=== PATIENT | male | born 1965 | race American Indian/Alaskan Native ===

== ENCOUNTER 2016-10-06 23:27 | Observation (INO) | payer OTHER ==
[2016-10-06 23:40] VITALS: BMI 25.0
[2016-10-06] MEDS ORDERED: Levalbuterol 1.25 MG/3 ML Inhal Soln UD IH STA (23:44)
--- NOTE | 2016-10-06 23:48 | ED PDOC ---
Arrival/HPI - General Time Seen by Provider: 10/06/16 23:31 Historian: Patient, EMS - History of Present Illness Narrative History of Present Illness (Text): 10/06/16 23:44 Danie De Leon is a 50 year old male, with a history of CAD with stents and asthma/bronchitis, presents to the via ambulance because he was found unconscious in a backyard barbecue. Patient was administered 0.4 mg of narcan in the field, after which he regained consciousness. Patient admits to drinking alcohol and "sniffing a bag of heroin" but was unsure what happened after. Currently in the emergency department, patient is complaining of a chest pain, which he describes as "someone pressing on the chest." Denies any suicidal or homicidal ideation. Denies fever, chills, headache, dizziness, nausea, vomiting , diarrhea, urinary symptoms, or any other complaints at this time. Time/Duration: 1-3 hours Symptom Course: Improving Context: Home Past Medical History - Provider Review Nursing Documentation Reviewed: Yes Family/Social History - Physician Review Nursing Documentation Reviewed: Yes Family/Social History: No Known Family HX Allergies/Home Meds Allergies/Adverse Reactions: Allergies Penicillins Adverse Reaction (Verified 10/06/16 23:41) ANAPHYLAXIS Home Medications: Home Meds Medication Instructions Recorded Confirmed No Known Home Med 10/06/16 10/06/16 Review of Systems - Physician Review All systems were reviewed & negative as marked: Yes - Review of Systems Constitutional: absent: Fatigue, Fevers Respiratory: absent: SOB, Cough, Sputum Cardiovascular: Chest Pain. absent: Palpitations Gastrointestinal: absent: Abdominal Pain, Diarrhea, Nausea, Vomiting Neurological: absent: Headache, Dizziness Psychiatric: Other (Heroin use ). absent: Suicidal Ideation Physical Exam Vital Signs Reviewed: Yes Vital Signs Pulse Resp BP Pulse Ox 10/07/16 01:14 80 16 138/85 94 L 10/06/16 23:41 94 H 17 151/105 H 93 L Temperature: Afebrile Blood Pressure: Normal Pulse: Regular Respiratory Rate: Normal Appearance: Positive for: Comfortable Pain Distress: None Mental Status: Positive for: Alert and Oriented X 3 - Systems Exam Head: Present: Atraumatic, Normocephalic Pupils: Present: PERRL Conjunctiva: Present: Normal Mouth: Present: Moist Mucous Membranes Pharnyx: Present: Normal. No: ERYTHEMA, EXUDATE Neck: No: JVD Respiratory/Chest: Present: Wheezes, Decreased Breath Sounds (Diminished breath sounds with mild wheezing ). No: Respiratory Distress, Accessory Muscle Use Cardiovascular: Present: Regular Rate and Rhythm, Normal S1, S2. No: Murmurs Abdomen: Present: Normal Bowel Sounds. No: Tenderness, Distention, Peritoneal Signs Upper Extremity: Present: Normal Inspection. No: Cyanosis, Edema Lower Extremity: Present: Normal Inspection. No: Edema Neurological: Present: GCS=15, CN II-XII Intact, Speech Normal Skin: Present: Warm, Dry, Normal Color. No: Rashes Psychiatric: Present: Alert, Oriented x 3, Normal Insight, Normal Concentration Medical Decision Making ED Course and Treatment: 10/06/16 23:51 Impression: Patient is a 50 year old male who presents to the emergency department complaining of chest pain following heroin and alcohol use. Plan: -- EKG -- Labs, Cardiac enzymes -- Chest X-ray -- Aspirin -- Xopenex -- Urinalysis -- Reassess and disposition Progress Notes: 10/06/16 23:54 EKG interpreted by me: NSR @ 97 bpm with .[address] segment elevation in Leads III and aVF. Q waves noted in V2 and V3. Mild MN depressions. Normal axis. Normal interval. No prior EKG for comparison. EKG sent to Dr. Casillas for review, agrees that it is not a STEMI. 10/06/16 23:58 Chest X-ray interpreted by me: No acute disease. 10/07/16 01:38 Patient with noted history of heroine OD, revived after narcan. Patient is stable from a respiratory status here in the ED. Denies SI. However, he is c/ o chest pain with a history of CAD. EKG is noted. First CE negative. Patient will need serial CE and cardiology workup. Case discussed with who is aware and agrees with the plan to observe patient at telemetry for chest pain. Accepts patient under hospitalist service. - Lab Interpretations Lab Results: 10/07/16 00:20 10/07/16 00:20 Lab Results 10/07/16 00:20: Alcohol, Quantitative 156 H 10/07/16 00:20: Sodium 143, Potassium 3.6, Chloride 106, Carbon Dioxide 24, Anion Gap 17, BUN 16, Creatinine 1.0, Est GFR ( Amer) > 60, Est GFR (Non- Af Amer) > 60, Random Glucose 98, Calcium 8.8, Magnesium 1.8, Total Bilirubin 0.8, AST 28, ALT 24, Alkaline Phosphatase 69, Lactate Dehydrogenase 426, Total Creatine Kinase 184, Troponin I < 0.01, NT-Pro-B Natriuret Pep 115, Total Protein 8.1, Albumin 4.6, Globulin 3.5, Albumin/Globulin Ratio 1.3, Lipase 354 H 10/07/16 00:20: PT 10.5, INR 0.97, APTT 24.7 10/07/16 00:20: WBC 5.7, RBC 5.21, Hgb 16.1, Hct 47.6, MCV 91.4, MCH 30.9, MCHC 33.8, RDW 14.5, Plt Count 202, MPV 9.8, Gran % 52.2, Lymph % (Auto) 36.7 H, [place] % (Auto) 6.7 H, Eos % (Auto) 3.3, Baso % (Auto) 1.1, Gran # 2.97, Lymph # 2.1, [place] # 0.4, Eos # 0.2, Baso # 0.06 - RAD Interpretation Radiology Orders: 10/06/16 23:43 CHEST PORTABLE [RAD] Stat - Medication Orders Current Medication Orders: Discontinued Medications Aspirin (Aspirin Chewable) 324 mg PO STAT STA Stop: 10/06/16 23:45 Last Admin: 10/07/16 00:07 Dose: 324 mg Levalbuterol HCl (Xopenex) 1.25 mg IH STAT STA Stop: 10/06/16 23:45 Last Admin: 10/07/16 00:08 Dose: 1.25 mg - Scribe Statement The provider has reviewed the documentation as recorded by the Feng Remy Provider Attestation: All medical record entries made by the Feng were at my direction and personally dictated by me. I have reviewed the chart and agree that the record accurately reflects my personal performance of the history, physical exam, medical decision making, and the department course for this patient. I have also personally directed, reviewed, and agree with the discharge instructions and disposition. Disposition/Present on Arrival - Present on Arrival Any Indicators Present on Arrival: No - Disposition Have Diagnosis and Disposition been Completed?: Yes Diagnosis: Heroin overdose, Chest pain Disposition: HOSPITALIZED Disposition Time: 01:20 Patient Plan: Observation, Telemetry Condition: FAIR Discharge Instructions (ExitCare): Chest Pain (ED)
[2016-10-07 00:34] LABS: BASO # 0.06 K/mm3 (0.0-2.0); BASO % 1.1 % (0.0-3.0); EOS # 0.2 (0.0-0.7); EOS % 3.3 % (1.5-5.0); GRAN # 2.97 (1.4-6.5); GRAN % 52.2 % (50.0-68.0); HEMOGLOBIN 16.1 gm/dL (14.0-18.0); LYMPH # 2.1 (1.2-3.4); LYMPH % 36.7 % (22.0-35.0); MEAN CELL VOLUME 91.4 fL (80.0-105.0); MEAN CORPUSCULAR HEMOGLOBIN 30.9 pg (25.0-35.0); MEAN CORPUSCULAR HGB CONC 33.8 g/dl (31.0-37.0); MEAN PLATELET VOLUME 9.8 fl (7.0-11.0); MONO # 0.4 (0.1-0.6); MONO % 6.7 % (1.0-6.0); PLATELET COUNT 202 10^3/uL (120.0-450.0); RBC 5.21 10^6/uL (3.5-6.1); RED CELL DISTRIBUTION WIDTH 14.5 % (11.5-14.5); WHITE BLOOD COUNT 5.7 10^3/ul (4.5-11.0)
[2016-10-07 00:43] LABS: INR 0.97 (0.93-1.08); PARTIAL THROMBOPLASTIN TIME 24.7 Seconds (23.7-30.8); PROTHROMBIN TIME 10.5 Seconds (9.9-11.8)
[2016-10-07 00:44] LABS: ALB/GLOB RATIO 1.3 (1.1-1.8); ALBUMIN 4.6 g/dL (3.0-4.8); ALT/SGPT 24 U/L (7-56); AST/SGOT 28 U/L (15-59); BLOOD UREA NITROGEN 16 mg/dL (7-21); CALCIUM 8.8 mg/dL (8.4-10.5); GFR AFRICAN-AMERICAN > 60; GFR NON-AFRICAN AMERICAN > 60; LIPASE 354 U/L (23-300); MAGNESIUM 1.8 mg/dL (1.7-2.2)
[2016-10-07 00:56] LABS: B-TYPE NATRIURETIC PEPTIDE 115 pg/mL (0-450)
[2016-10-07 01:11] LABS: TROPONIN I < 0.01 ng/mL
[2016-10-07] MEDS ORDERED: Sodium Chloride 0.9% 1,000 ML IV SCH (02:15)
[2016-10-07] MEDS ORDERED: Levalbuterol 1.25 MG/3 ML Inhal Soln UD IH PRN (02:26)
[2016-10-07] MEDS ORDERED: Ipratropium 0.02% Inhal Soln (0.5 mg/2.5 ml) UD IH PRN (02:27)
--- NOTE | 2016-10-07 02:29 | CP.PCM.HP ---
<ALAYNA WESLEY - Last Filed: 10/07/16 05:26> History of Present Illness - History of Present Illness History of Present Illness: Patient is a 51 year old black male with a PMH of CAD with stents and asthma who presents today with complaint of chest pain after admitting to taking heroin and consuming alcohol. Patient states the pain was initially a 7/10 now and since being admitted has improved to a 6/10. Patient states that this chest pain has only occurred once before when he took heroin and this was about a year ago as per patient. Patient denies nausea, vomiting, diarrhea, chills, shortness of breath. Present on Admission - Present on Admission Any Indicators Present on Admission: No Review of Systems - Review of Systems Systems not reviewed;Unavailable: Altered Mental Status, Intoxicated, Uncooperative - Cardiovascular Cardiovascular: Chest Pain. absent: Chest Pain with Activity, Dyspnea, Lightheadedness - Respiratory Respiratory: Snoring. absent: Dyspnea on Exertion - Gastrointestinal Gastrointestinal: As Per HPI Past Patient History - Infectious Disease Hx of Infectious Diseases: None - Past Social History Smoking Status: Light Smoker < 10 Cigarettes Daily - CARDIAC Other/Comment: Stent placed - PSYCHIATRIC Hx Substance Use: Yes - SURGICAL HISTORY Other/Comment: 1 stent - ANESTHESIA Hx Anesthesia: No Meds Allergies/Adverse Reactions: Allergies Allergy/AdvReac Type Severity Reaction Status Date / Time Penicillins AdvReac ANAPHYLAXIS Verified 10/06/16 23:41 Physical Exam - Constitutional Appears: Toxic, Unkempt, Confused - Head Exam Head Exam: ATRAUMATIC, NORMAL INSPECTION, NORMOCEPHALIC - Neck Exam Neck exam: Positive for: Normal Inspection - Respiratory Exam Respiratory Exam: Clear to Auscultation Bilateral - Cardiovascular Exam Cardiovascular Exam: REGULAR RHYTHM - GI/Abdominal Exam GI & Abdominal Exam: Normal Bowel Sounds, Soft Results - Vital Signs Recent Vital Signs: Last Vital Signs Temp Pulse 80 10/07/16 01:14 Resp 16 10/07/16 01:14 BP 138/85 10/07/16 01:14 Pulse Ox 94 L 10/07/16 01:14 - Labs Result Diagrams: 10/07/16 00:20 10/07/16 00:20 Labs: Laboratory Results - last 24 hr 10/07/16 10/07/16 10/07/16 00:20 00:20 00:20 WBC 5.7 RBC 5.21 Hgb 16.1 Hct 47.6 MCV 91.4 MCH 30.9 MCHC 33.8 RDW 14.5 Plt Count 202 MPV 9.8 Gran % 52.2 Lymph % (Auto) 36.7 H [place] % (Auto) 6.7 H Eos % (Auto) 3.3 Baso % (Auto) 1.1 Gran # 2.97 Lymph # 2.1 [place] # 0.4 Eos # 0.2 Baso # 0.06 PT 10.5 INR 0.97 APTT 24.7 Sodium 143 Potassium 3.6 Chloride 106 Carbon Dioxide 24 Anion Gap 17 BUN 16 Creatinine 1.0 Est GFR ( Amer) > 60 Est GFR (Non-Af Amer) > 60 Random Glucose 98 Calcium 8.8 Magnesium 1.8 Total Bilirubin 0.8 AST 28 ALT 24 Alkaline Phosphatase 69 Lactate Dehydrogenase 426 Total Creatine Kinase 184 Troponin I < 0.01 NT-Pro-B Natriuret Pep 115 Total Protein 8.1 Albumin 4.6 Globulin 3.5 Albumin/Globulin Ratio 1.3 Lipase 354 H Alcohol, Quantitative 10/07/16 00:20 WBC RBC Hgb Hct MCV MCH MCHC RDW Plt Count MPV Gran % Lymph % (Auto) [place] % (Auto) Eos % (Auto) Baso % (Auto) Gran # Lymph # [place] # Eos # Baso # PT INR APTT Sodium Potassium Chloride Carbon Dioxide Anion Gap BUN Creatinine Est GFR ( Amer) Est GFR (Non-Af Amer) Random Glucose Calcium Magnesium Total Bilirubin AST ALT Alkaline Phosphatase Lactate Dehydrogenase Total Creatine Kinase Troponin I NT-Pro-B Natriuret Pep Total Protein Albumin Globulin Albumin/Globulin Ratio Lipase Alcohol, Quantitative 156 H Assessment & Plan - Assessment and Plan (Free Text) Assessment: Assessment: Patient is 50 year old black male PMH CAD with stents who presented to the ED with complaints of chest pain after alcohol and heroin use. 1. Rule out ACS Upon being admitted patient was given Aspirin 324 mg, EKG was performed and demonstrates ST elevations in leads III and AVF. Cardiac enzymes were negative upon admission. Will continue with telemetry and monitoring cardiac enzymes. Started on regimen of aspirin 81 mg daily, lovenox 40 mg sc daily, and atorvastatin 80 mg PO daily. Currently witholding Beta katlin due to history of cocaine abuse. 2. Drug overdose Patient admitted to using heroin this evening for which he was found unresponsive and administered 0.4 mg of narcam in the field. 3. Alcohol withdrawal Continue with Ativan 2 mg IVP q6 hours for seizure/alcohol withdrawal, Thiamine 100 mg daily, 1 mg folate daily , 1 mg multivitamin <Jose Ortiz MD - Last Filed: 10/07/16 07:24> Results - Vital Signs Recent Vital Signs: Last Vital Signs Temp 98.4 F 10/07/16 05:40 Pulse 65 10/07/16 05:54 Resp 18 10/07/16 05:53 BP 141/77 10/07/16 05:53 Pulse Ox 98 10/07/16 05:53 - Labs Result Diagrams: 10/07/16 00:20 10/07/16 00:20 Labs: Laboratory Results - last 24 hr 10/07/16 10/07/16 05:20 05:20 Urine Color Dark yellow Urine Appearance Clear Urine pH 5.5 Ur Specific [place] >= 1.030 Urine Protein Negative Urine Glucose (UA) Negative Urine Ketones Trace H Urine Blood Negative Urine Nitrate Negative Urine Bilirubin Negative Urine Urobilinogen 0.2 Ur Leukocyte Esterase Negative Urine Opiates Screen Positive H Urine Methadone Screen Negative Ur Barbiturates Screen Negative Ur Phencyclidine Scrn Negative Ur Amphetamines Screen Negative U Benzodiazepines Scrn Negative U Oth Cocaine Metabols Negative U Cannabinoids Screen Negative Attending/Attestation - Attestation I have personally seen and examined this patient.: Yes I have fully participated in the care of the patient.: Yes I have reviewed all pertinent clinical information: Yes Notes (Text): 10/07/16 07:14 -I agree with the above H&P completed by the resident physician with the following additions and/or changes: The patient is a 50 year old AAM with a reported history of CAD (s/p stents), chronic ETOH abuse and heroin abuse, who initially overdosed on heroin earlier in the night. Fortunately, his symptoms markedly improved after EMS administered SQ Narcan in the field. He was also found to be intoxicated with ETOH. In the ED, he developed new onset substernal chest pain and therefore is being admitted for rule out ACS (especially given his extensive reported cardiac history). Serial trop's and EKG's, HgA1c, Lipid panel and TSH have been ordered. Also, a cardiology consult has been placed. In addition, he will be started on ASA and Lipitor; PRN Clonidine for BP control and PRN IV Ativan for agitation and/or seizures. Also, daily folic acid, thiamine and MVI. 10/07/16 07:21
[2016-10-07 05:43] LABS: PH,URINE 5.5 (4.7-8.0); URINE BILIRUBIN NEGATIVE (NEGATIVE); URINE BLOOD NEGATIVE (NEGATIVE); URINE GLUCOSE (UA) NEGATIVE (NEGATIVE); URINE LEUKOCYTE ESTERASE NEGATIVE Leu/uL (NEGATIVE); URINE NITRATE NEGATIVE (NEGATIVE); URINE PROTEIN NEGATIVE mg/dL (<30 mg/dL); URINE UROBILINOGEN 0.2 E.U./dL (<1 E.U./dL)
[2016-10-07 05:48] LABS: URINE APPEARANCE CLEAR (CLEAR); URINE COLOR DARK YELLOW (YELLOW)
[2016-10-07 05:54] VITALS: BP 141/77; PULSE 65; RESP 18; O2SAT 98
[2016-10-07 06:04] VITALS: TEMP 98.4
[2016-10-07 06:11] LABS: BARBITURATES, UR NEGATIVE (NEGATIVE); BENZODIAZEPINES, UR NEGATIVE (NEGATIVE); OPIATES, UR POSITIVE (NEGATIVE); PHENCYCLIDINE, UR NEGATIVE (NEGATIVE)
[2016-10-07 07:47] LABS: BASO # 0.06 K/mm3 (0.0-2.0); BASO % 0.8 % (0.0-3.0); EOS % 0.5 % (1.5-5.0); GRAN # 4.98 (1.4-6.5); GRAN % 65.5 % (50.0-68.0); HEMOGLOBIN 15.1 gm/dL (14.0-18.0); LYMPH # 1.9 (1.2-3.4); LYMPH % 25.2 % (22.0-35.0); MEAN CELL VOLUME 92.4 fL (80.0-105.0); MEAN CORPUSCULAR HEMOGLOBIN 30.3 pg (25.0-35.0); MEAN CORPUSCULAR HGB CONC 32.8 g/dl (31.0-37.0); MEAN PLATELET VOLUME 10.4 fl (7.0-11.0); MONO # 0.6 (0.1-0.6); PLATELET COUNT 202 10^3/uL (120.0-450.0); RBC 4.98 10^6/uL (3.5-6.1); RED CELL DISTRIBUTION WIDTH 14.7 % (11.5-14.5); WHITE BLOOD COUNT 7.6 10^3/ul (4.5-11.0)
[2016-10-07 08:00] LABS: ALB/GLOB RATIO 1.5 (1.1-1.8); ALBUMIN 4.5 g/dL (3.0-4.8); ALT/SGPT 22 U/L (7-56); AST/SGOT 37 U/L (15-59); BLOOD UREA NITROGEN 18 mg/dL (7-21); CALCIUM 8.8 mg/dL (8.4-10.5); GFR AFRICAN-AMERICAN > 60; GFR NON-AFRICAN AMERICAN > 60; HDL CHOLESTEROL 74 mg/dL (29-60); MAGNESIUM 1.6 mg/dL (1.7-2.2)
[2016-10-07] MEDS ORDERED: Multivitamin With Minerals Tab PO SCH (08:00)
[2016-10-07 08:10] LABS: LDL CHOLESTEROL 114 mg/dL (0-129)
[2016-10-07 08:15] LABS: CK MB% 5.1 % (2.5-3.0); CK-MB 12.9 ng/mL (0.0-3.6)
[2016-10-07] MEDS ORDERED: Magnesium Sulfate 2 GM in Sodium Chloride 0.9% 100 ML IVPB ONE (08:27)
[2016-10-07 08:52] LABS: TROPONIN I 0.68 ng/mL
--- NOTE | 2016-10-07 08:52 | CP.PCM.CON ---
History of Present Illness - History of Present Illness History of Present Illness: Reason for Consult: Syncope After EToh and substance abuse, Hx of CAD 50 year old male with Hx of CAD, S./p PTCA 6 years ago at [facility] who was drinking whole day and smoke a bag of heroin, then doing Barbecue and passed out in backyard, denies any chest pain, or SOB or MCLEOD Past Patient History - Infectious Disease Hx of Infectious Diseases: None - Past Social History Smoking Status: Light Smoker < 10 Cigarettes Daily - CARDIAC Other/Comment: Stent placed - PULMONARY Hx Respiratory Disorders: Yes Hx Asthma: Yes Hx Bronchitis: Yes - NEUROLOGICAL Hx Neurological Disorder: No - HEENT Hx HEENT Problems: No - RENAL Hx Chronic Kidney Disease: No - ENDOCRINE/METABOLIC Hx Endocrine Disorders: No - HEMATOLOGICAL/ONCOLOGICAL Hx Blood Disorders: No - INTEGUMENTARY Hx Dermatological Problems: No - MUSCULOSKELETAL/RHEUMATOLOGICAL Hx Musculoskeletal Disorders: No Hx Falls: Yes - GASTROINTESTINAL Hx Gastrointestinal Disorders: No - GENITOURINARY/GYNECOLOGICAL Hx Genitourinary Disorders: No - PSYCHIATRIC Hx Substance Use: Yes - SURGICAL HISTORY Other/Comment: 1 stent - ANESTHESIA Hx Anesthesia: No Meds Allergies/Adverse Reactions: Allergies Allergy/AdvReac Type Severity Reaction Status Date / Time Penicillins AdvReac ANAPHYLAXIS Verified 10/06/16 23:41 - Medications Medications: Current Medications Acetaminophen (Tylenol 325mg Tab) 650 mg PO Q6H PRN PRN Reason: Pain, moderate (4-7) Aspirin (Aspirin Chewable) 81 mg PO DAILY [facility] Atorvastatin Calcium (Lipitor) 80 mg PO DIN [facility] Clonidine HCl (Catapres) 0.1 mg PO TID PRN PRN Reason: Systolic Blood Pressure Enoxaparin Sodium (Lovenox) 40 mg SC DAILY [facility] PRN Reason: Protocol Folic Acid (Folic Acid) 1 mg PO DAILY [facility] Sodium Chloride (Sodium Chloride 0.9%) 1,000 mls @ 75 mls/hr IV .[id number] [place] Last Admin: 10/07/16 02:30 Dose: 75 mls/hr Magnesium Sulfate 2 gm/ Sodium (Chloride) 104 mls @ 102 mls/hr IVPB ONCE ONE Stop: 10/07/16 09:28 Ipratropium [place] (Atrovent) 0.5 mg IH Q2H PRN PRN Reason: Shortness of Breath Last Admin: 10/07/16 04:02 Dose: 0.5 mg Levalbuterol HCl (Xopenex) 1.25 mg IH Q2H PRN PRN Reason: Shortness of Breath Last Admin: 10/07/16 04:02 Dose: 1.25 mg Lorazepam (Ativan) 2 mg IVP Q6H PRN; Protocol PRN Reason: Seizure activity Multivitamins/Minerals (Therapeutic-M Tab) 1 tab PO 0800 [place] Ondansetron HCl (Zofran Inj) 4 mg IVP Q6H PRN PRN Reason: Nausea/Vomiting Pantoprazole Sodium (Protonix Ec Tab) 40 mg PO DAILY [place] Thiamine HCl (Vitamin B1 Tab) 100 mg PO DAILY [facility] Results - Vital Signs Recent Vital Signs: Last Vital Signs Temp 98.4 F 10/07/16 05:40 Pulse 65 10/07/16 05:54 Resp 18 10/07/16 05:53 BP 141/77 10/07/16 05:53 Pulse Ox 98 10/07/16 05:53 - Labs Result Diagrams: 10/07/16 07:10 10/07/16 07:10 Labs: Laboratory Results - last 24 hr 10/07/16 10/07/16 10/07/16 05:20 05:20 07:10 WBC 7.6 D RBC 4.98 Hgb 15.1 Hct 46.0 MCV 92.4 MCH 30.3 MCHC 32.8 RDW 14.7 H Plt Count 202 MPV 10.4 Gran % 65.5 Lymph % (Auto) 25.2 [place] % (Auto) 8.0 H Eos % (Auto) 0.5 L Baso % (Auto) 0.8 Gran # 4.98 Lymph # 1.9 [place] # 0.6 Eos # 0.0 Baso # 0.06 Sodium Potassium Chloride Carbon Dioxide Anion Gap BUN Creatinine Est GFR ( Amer) Est GFR (Non-Af Amer) Random Glucose Calcium Phosphorus Magnesium Total Bilirubin AST ALT Alkaline Phosphatase Total Creatine Kinase CK-MB (CK-2) CK-MB (CK-2) % Total Protein Albumin Globulin Albumin/Globulin Ratio Triglycerides Cholesterol HDL Cholesterol TSH 3rd Generation Urine Color Dark yellow Urine Appearance Clear Urine pH 5.5 Ur Specific [place] >= 1.030 Urine Protein Negative Urine Glucose (UA) Negative Urine Ketones Trace H Urine Blood Negative Urine Nitrate Negative Urine Bilirubin Negative Urine Urobilinogen 0.2 Ur Leukocyte Esterase Negative Urine Opiates Screen Positive H Urine Methadone Screen Negative Ur Barbiturates Screen Negative Ur Phencyclidine Scrn Negative Ur Amphetamines Screen Negative U Benzodiazepines Scrn Negative U Oth Cocaine Metabols Negative U Cannabinoids Screen Negative 10/07/16 10/07/16 07:10 07:10 WBC RBC Hgb Hct MCV MCH MCHC RDW Plt Count MPV Gran % Lymph % (Auto) [place] % (Auto) Eos % (Auto) Baso % (Auto) Gran # Lymph # [place] # Eos # Baso # Sodium 144 Potassium 3.8 Chloride 107 Carbon Dioxide 23 Anion Gap 18 BUN 18 Creatinine 1.0 Est GFR ( Amer) > 60 Est GFR (Non-Af Amer) > 60 Random Glucose 84 Calcium 8.8 Phosphorus 3.9 Magnesium 1.6 L Total Bilirubin 0.6 AST 37 ALT 22 Alkaline Phosphatase 71 Total Creatine Kinase 251 H CK-MB (CK-2) 12.9 H CK-MB (CK-2) % 5.1 H Total Protein 7.6 Albumin 4.5 Globulin 3.1 Albumin/Globulin Ratio 1.5 Triglycerides 184 H Cholesterol 205 H HDL Cholesterol 74 H TSH 3rd Generation 1.36 Urine Color Urine Appearance Urine pH Ur Specific [place] Urine Protein Urine Glucose (UA) Urine Ketones Urine Blood Urine Nitrate Urine Bilirubin Urine Urobilinogen Ur Leukocyte Esterase Urine Opiates Screen Urine Methadone Screen Ur Barbiturates Screen Ur Phencyclidine Scrn Ur Amphetamines Screen U Benzodiazepines Scrn U Oth Cocaine Metabols U Cannabinoids Screen Assessment & Plan - Assessment and Plan (Free Text) Assessment: Syncope secondary to ETOH abuse , was drinking whole day on $ october, Hx of smoking of heroin one bag Hx of CAD S/p PTCA 6 years ago currently on Asa only No Chest pain Elevated BAlon admission No evidence of ACS so far Plan: ADd Cpk troponin in Am blood monitor TSH. Lipid profile if Cpk remains negative can be dc F/u with his PMD for stress test as out pt. - Date & Time Date: 10/07/16 Time: 07:00
--- NOTE | 2016-10-07 09:15 | RAD ---
HISTORY: cp COMPARISON: No prior. FINDINGS: LUNGS: No active pulmonary disease. PLEURA: No significant pleural effusion identified, no pneumothorax apparent. CARDIOVASCULAR: Normal. OSSEOUS STRUCTURES: No significant abnormalities. VISUALIZED UPPER ABDOMEN: Normal. OTHER FINDINGS: None. IMPRESSION: No active disease.
[2016-10-07] MEDS ORDERED: Enoxaparin 40 mg Syringe SC SCH (10:00)
[2016-10-07] MEDS ORDERED: Pantoprazole 40 mg EC Tab PO SCH (10:00)
--- NOTE | 2016-10-07 10:46 | CARD ---
APPROVED REPORT EKG Measurement Heart [id number] <Conclusion> Normal sinus rhythm Anteriorl infarct, age undetermined ST elevations 2,3,F R/O ischemia, injury pattern
--- NOTE | 2016-10-07 18:57 | CP.PCM.DIS ---
<TERRY ROBERT - Last Filed: 10/07/16 18:58> Provider - Provider Date of Admission: 10/07/16 01:22 Attending physician: Carmen Zarate MD Primary care physician: Does not have PCP Consults: Cardiology: Dr. Casillas Time Spent in preparation of Discharge (in minutes): 47 Hospital Course - Lab Results Lab Results: Most Recent Lab Values WBC 7.6 10^3/ul (4.5-11.0) D 10/07/16 07:10 RBC 4.98 10^6/uL (3.5-6.1) 10/07/16 07:10 Hgb 15.1 gm/dL (14.0-18.0) 10/07/16 07:10 Hct 46.0 % (42.0-52.0) 10/07/16 07:10 MCV 92.4 fL (80.0-105.0) 10/07/16 07:10 MCH 30.3 pg (25.0-35.0) 10/07/16 07:10 MCHC 32.8 g/dl (31.0-37.0) 10/07/16 07:10 RDW 14.7 % (11.5-14.5) H 10/07/16 07:10 Plt Count 202 10^3/uL (120.0-450.0) 10/07/16 07:10 MPV 10.4 fl (7.0-11.0) 10/07/16 07:10 Gran % 65.5 % (50.0-68.0) 10/07/16 07:10 Lymph % (Auto) 25.2 % (22.0-35.0) 10/07/16 07:10 Nicholas % (Auto) 8.0 % (1.0-6.0) H 10/07/16 07:10 Eos % (Auto) 0.5 % (1.5-5.0) L 10/07/16 07:10 Baso % (Auto) 0.8 % (0.0-3.0) 10/07/16 07:10 Gran # 4.98 (1.4-6.5) 10/07/16 07:10 Lymph # 1.9 (1.2-3.4) 10/07/16 07:10 Nicholas # 0.6 (0.1-0.6) 10/07/16 07:10 Eos # 0.0 (0.0-0.7) 10/07/16 07:10 Baso # 0.06 K/mm3 (0.0-2.0) 10/07/16 07:10 PT 10.5 Seconds (9.9-11.8) 10/07/16 00:20 INR 0.97 (0.93-1.08) 10/07/16 00:20 APTT 24.7 Seconds (23.7-30.8) 10/07/16 00:20 Sodium 144 mmol/L (132-148) 10/07/16 07:10 Potassium 3.8 mmol/L (3.6-5.0) 10/07/16 07:10 Chloride 107 mmol/L (98-107) 10/07/16 07:10 Carbon Dioxide 23 mmol/L (21-33) 10/07/16 07:10 Anion Gap 18 (10-20) 10/07/16 07:10 BUN 18 mg/dL (7-21) 10/07/16 07:10 Creatinine 1.0 mg/dL (0.5-1.4) 10/07/16 07:10 Est GFR ( Amer) > 60 10/07/16 07:10 Est GFR (Non-Af Amer) > 60 10/07/16 07:10 Random Glucose 84 mg/dL (70-110) 10/07/16 07:10 Hemoglobin A1c 5.9 % (4.2-6.5) 10/07/16 07:10 Calcium 8.8 mg/dL (8.4-10.5) 10/07/16 07:10 Phosphorus 3.9 mg/dL (2.5-4.5) 10/07/16 07:10 Magnesium 1.6 mg/dL (1.7-2.2) L 10/07/16 07:10 Total Bilirubin 0.6 mg/dL (0.2-1.3) 10/07/16 07:10 AST 37 U/L (15-59) 10/07/16 07:10 ALT 22 U/L (7-56) 10/07/16 07:10 Alkaline Phosphatase 71 U/L (38-133) 10/07/16 07:10 Lactate Dehydrogenase 426 U/L (333-699) 10/07/16 00:20 Total Creatine Kinase 251 U/L (35-230) H 10/07/16 07:10 CK-MB (CK-2) 12.9 ng/mL (0.0-3.6) H 10/07/16 07:10 CK-MB (CK-2) % 5.1 % (2.5-3.0) H 10/07/16 07:10 Troponin I 0.68 ng/mL H* D 10/07/16 07:10 NT-Pro-B Natriuret Pep 115 pg/mL (0-450) 10/07/16 00:20 Total Protein 7.6 g/dL (5.8-8.3) 10/07/16 07:10 Albumin 4.5 g/dL (3.0-4.8) 10/07/16 07:10 Globulin 3.1 gm/dL 10/07/16 07:10 Albumin/Globulin Ratio 1.5 (1.1-1.8) 10/07/16 07:10 Triglycerides 184 mg/dL (35-160) H 10/07/16 07:10 Cholesterol 205 mg/dL (130-200) H 10/07/16 07:10 LDL Cholesterol Direct 114 mg/dL (0-129) 10/07/16 07:10 HDL Cholesterol 74 mg/dL (29-60) H 10/07/16 07:10 Lipase 354 U/L (23-300) H 10/07/16 00:20 TSH 3rd Generation 1.36 mIU/mL (0.46-4.68) 10/07/16 07:10 Urine Color Dark yellow (YELLOW) 10/07/16 05:20 Urine Appearance Clear (CLEAR) 10/07/16 05:20 Urine pH 5.5 (4.7-8.0) 10/07/16 05:20 Ur Specific [place] >= 1.030 (1.005-1.035) 10/07/16 05:20 Urine Protein Negative mg/dL (<30 mg/dL) 10/07/16 05:20 Urine Glucose (UA) Negative mg/dL (NEGATIVE) 10/07/16 05:20 Urine Ketones Trace mg/dL (NEGATIVE) H 10/07/16 05:20 Urine Blood Negative (NEGATIVE) 10/07/16 05:20 Urine Nitrate Negative (NEGATIVE) 10/07/16 05:20 Urine Bilirubin Negative (NEGATIVE) 10/07/16 05:20 Urine Urobilinogen 0.2 E.U./dL (<1 E.U./dL) 10/07/16 05:20 Ur Leukocyte Esterase Negative Pavel/uL (NEGATIVE) 10/07/16 05:20 Urine Opiates Screen Positive (NEGATIVE) H 10/07/16 05:20 Urine Methadone Screen Negative (NEGATIVE) 10/07/16 05:20 Ur Barbiturates Screen Negative (NEGATIVE) 10/07/16 05:20 Ur Phencyclidine Scrn Negative (NEGATIVE) 10/07/16 05:20 Ur Amphetamines Screen Negative (NEGATIVE) 10/07/16 05:20 U Benzodiazepines Scrn Negative (NEGATIVE) 10/07/16 05:20 U Oth Cocaine Metabols Negative (NEGATIVE) 10/07/16 05:20 U Cannabinoids Screen Negative (NEGATIVE) 10/07/16 05:20 Alcohol, Quantitative 156 mg/dL (0-10) H 10/07/16 00:20 - Hospital Course Hospital Course: Patient presented with complaint of chest pain after admitting to taking heroin and consuming alcohol. In the ED patient was given Aspirin 324 mg, EKG was performed and demonstrated ST elevations in leads III and AVF. Chest Xray was unremarkable. Initial cardiac enzymes were negative upon admission. Cardiac enzymes were sent to be trended, patient was sent to telemetry for monitoring, and was started on a regimen of aspirin 81 mg, lovenox 40 mg sc, and atorvastatin 80 mg PO. Patient was also started on CIWA protocol for possible alcohol withdrawal. Telemetry revealed that the patient went into 23 beats of ventricular tachycardia that required no medical intervention. Cardiology was consulted and recommended that patient wait for the next cardiac enzymes to come back from the lab and, if negative, could be discharged. Patient initially agreed and waited. Patient then decided to leave against medical advice before the cardiac enzymes came back. Patient was urged to stay in the hospital for further treatment and workup of his chest pain, possible alcohol withdrawal and ventricular tachycardia. Patient was explained that he could obtain worsening cardiac complications, including stroke and myocardial infarction, neurological complications, permanent disability and . Patient acknowledged understanding and verbalized this understanding on more than one occasion before leaving the hospital. Patient signed an Against Medical Advice form, witnessed by a member of the nursing staff and a resident physician. He denied chest pain, palpitations, headaches, changes in vision, dizziness, shortness of breath, nausea, vomiting, diarrhea, abdominal pain, fever, chills and numbness, tingling, weakness in any extremity. - Date & Time of H&P Date of H&P: 10/07/16 Time of H&P: 02:30 Discharge Exam - Head Exam Head Exam: ATRAUMATIC, NORMAL INSPECTION, NORMOCEPHALIC - Eye Exam Eye Exam: EOMI, Normal appearance - ENT Exam ENT Exam: Mucous Membranes Moist, Normal Exam - Neck Exam Neck exam: Full Rom - Respiratory Exam Respiratory Exam: NORMAL BREATHING PATTERN, UNREMARKABLE. absent: Rales, Rhonchi, Wheezes - Cardiovascular Exam Cardiovascular Exam: REGULAR RHYTHM, RRR, +S1, +S2 - GI/Abdominal Exam GI & Abdominal Exam: Normal Bowel Sounds, Unremarkable. absent: Distended, Guarding - Extremities Exam Additional comments: no LE edeme or tenderness - Neurological Exam Neurological exam: Alert, Normal Gait, Oriented x3 - Psychiatric Exam Psychiatric exam: Normal Affect, Normal Mood - Skin Skin Exam: Dry, Intact, Normal Color, Warm Discharge Plan - Follow Up Plan Condition: FAIR Disposition: AGAINST MEDICAL ADVICE Instructions: Chest Pain (DC), Chest Pain (GEN) Additional Instructions: 1. If you have new or worsening symptoms, please seek emergency medical attention. 2. Establish care with a primary care physician as soon as possible for a post hospital visit. <Carmen Zarate - Last Filed: 10/08/16 08:33> Provider - Provider Date of Admission: 10/07/16 01:22 Attending physician: Carmen Zarate MD Hospital Course - Lab Results Lab Results: Most Recent Lab Values WBC 7.6 10^3/ul (4.5-11.0) D 10/07/16 07:10 RBC 4.98 10^6/uL (3.5-6.1) 10/07/16 07:10 Hgb 15.1 gm/dL (14.0-18.0) 10/07/16 07:10 Hct 46.0 % (42.0-52.0) 10/07/16 07:10 MCV 92.4 fL (80.0-105.0) 10/07/16 07:10 MCH 30.3 pg (25.0-35.0) 10/07/16 07:10 MCHC 32.8 g/dl (31.0-37.0) 10/07/16 07:10 RDW 14.7 % (11.5-14.5) H 10/07/16 07:10 Plt Count 202 10^3/uL (120.0-450.0) 10/07/16 07:10 MPV 10.4 fl (7.0-11.0) 10/07/16 07:10 Gran % 65.5 % (50.0-68.0) 10/07/16 07:10 Lymph % (Auto) 25.2 % (22.0-35.0) 10/07/16 07:10 Nicholas % (Auto) 8.0 % (1.0-6.0) H 10/07/16 07:10 Eos % (Auto) 0.5 % (1.5-5.0) L 10/07/16 07:10 Baso % (Auto) 0.8 % (0.0-3.0) 10/07/16 07:10 Gran # 4.98 (1.4-6.5) 10/07/16 07:10 Lymph # 1.9 (1.2-3.4) 10/07/16 07:10 Nicholas # 0.6 (0.1-0.6) 10/07/16 07:10 Eos # 0.0 (0.0-0.7) 10/07/16 07:10 Baso # 0.06 K/mm3 (0.0-2.0) 10/07/16 07:10 PT 10.5 Seconds (9.9-11.8) 10/07/16 00:20 INR 0.97 (0.93-1.08) 10/07/16 00:20 APTT 24.7 Seconds (23.7-30.8) 10/07/16 00:20 Sodium 144 mmol/L (132-148) 10/07/16 07:10 Potassium 3.8 mmol/L (3.6-5.0) 10/07/16 07:10 Chloride 107 mmol/L (98-107) 10/07/16 07:10 Carbon Dioxide 23 mmol/L (21-33) 10/07/16 07:10 Anion Gap 18 (10-20) 10/07/16 07:10 BUN 18 mg/dL (7-21) 10/07/16 07:10 Creatinine 1.0 mg/dL (0.5-1.4) 10/07/16 07:10 Est GFR ( Amer) > 60 10/07/16 07:10 Est GFR (Non-Af Amer) > 60 10/07/16 07:10 Random Glucose 84 mg/dL (70-110) 10/07/16 07:10 Hemoglobin A1c 5.9 % (4.2-6.5) 10/07/16 07:10 Calcium 8.8 mg/dL (8.4-10.5) 10/07/16 07:10 Phosphorus 3.9 mg/dL (2.5-4.5) 10/07/16 07:10 Magnesium 1.6 mg/dL (1.7-2.2) L 10/07/16 07:10 Total Bilirubin 0.6 mg/dL (0.2-1.3) 10/07/16 07:10 AST 37 U/L (15-59) 10/07/16 07:10 ALT 22 U/L (7-56) 10/07/16 07:10 Alkaline Phosphatase 71 U/L (38-133) 10/07/16 07:10 Lactate Dehydrogenase 426 U/L (333-699) 10/07/16 00:20 Total Creatine Kinase 251 U/L (35-230) H 10/07/16 07:10 CK-MB (CK-2) 12.9 ng/mL (0.0-3.6) H 10/07/16 07:10 CK-MB (CK-2) % 5.1 % (2.5-3.0) H 10/07/16 07:10 Troponin I 0.68 ng/mL H* D 10/07/16 07:10 NT-Pro-B Natriuret Pep 115 pg/mL (0-450) 10/07/16 00:20 Total Protein 7.6 g/dL (5.8-8.3) 10/07/16 07:10 Albumin 4.5 g/dL (3.0-4.8) 10/07/16 07:10 Globulin 3.1 gm/dL 10/07/16 07:10 Albumin/Globulin Ratio 1.5 (1.1-1.8) 10/07/16 07:10 Triglycerides 184 mg/dL (35-160) H 10/07/16 07:10 Cholesterol 205 mg/dL (130-200) H 10/07/16 07:10 LDL Cholesterol Direct 114 mg/dL (0-129) 10/07/16 07:10 HDL Cholesterol 74 mg/dL (29-60) H 10/07/16 07:10 Lipase 354 U/L (23-300) H 10/07/16 00:20 TSH 3rd Generation 1.36 mIU/mL (0.46-4.68) 10/07/16 07:10 Urine Color Dark yellow (YELLOW) 10/07/16 05:20 Urine Appearance Clear (CLEAR) 10/07/16 05:20 Urine pH 5.5 (4.7-8.0) 10/07/16 05:20 Ur Specific [place] >= 1.030 (1.005-1.035) 10/07/16 05:20 Urine Protein Negative mg/dL (<30 mg/dL) 10/07/16 05:20 Urine Glucose (UA) Negative mg/dL (NEGATIVE) 10/07/16 05:20 Urine Ketones Trace mg/dL (NEGATIVE) H 10/07/16 05:20 Urine Blood Negative (NEGATIVE) 10/07/16 05:20 Urine Nitrate Negative (NEGATIVE) 10/07/16 05:20 Urine Bilirubin Negative (NEGATIVE) 10/07/16 05:20 Urine Urobilinogen 0.2 E.U./dL (<1 E.U./dL) 10/07/16 05:20 Ur Leukocyte Esterase Negative Pavel/uL (NEGATIVE) 10/07/16 05:20 Urine Opiates Screen Positive (NEGATIVE) H 10/07/16 05:20 Urine Methadone Screen Negative (NEGATIVE) 10/07/16 05:20 Ur Barbiturates Screen Negative (NEGATIVE) 10/07/16 05:20 Ur Phencyclidine Scrn Negative (NEGATIVE) 10/07/16 05:20 Ur Amphetamines Screen Negative (NEGATIVE) 10/07/16 05:20 U Benzodiazepines Scrn Negative (NEGATIVE) 10/07/16 05:20 U Oth Cocaine Metabols Negative (NEGATIVE) 10/07/16 05:20 U Cannabinoids Screen Negative (NEGATIVE) 10/07/16 05:20 Alcohol, Quantitative 156 mg/dL (0-10) H 10/07/16 00:20 Attending/Attestation - Attestation I have reviewed all pertinent clinical information, including history, physical exam and plan: Yes Notes (Text): 10/07/16 50 year old male who was admitted overnight with complaint of chest pain. He admitted to recent heroin and alcohol abuse. He was admitted to telemetry unit to rule out ACS. Initial cardiac enzyme was negative. He was started on aspirin and statin. He was seen by undergraduate intern and cardiology early this morning and decided to sign out AMA. AM labs were pending. He was explained in detail risks of signing out AMA by the undergraduate intern. He verbalized understanding of risks and signed out AMA. He was counselled on risks of continued substance/alcohol abuse. Patient left AMA prior to my rounds. Carmen Zarate MD Hospitalist.
== END 2016-10-07 09:22 | disposition left against medical advice (07) ==
LOC: ED 23:27 → ERH 10-07 01:22 → 2RSO 10-07 03:42
PROVIDERS: ADMIT Internal Medicine; ATTEND Internal Medicine
DX: T40.1X1A Poisoning by heroin, accidental (unintentional), initial encounter (principal); R07.9 Chest pain, unspecified; F10.129 Alcohol abuse with intoxication, unspecified; F17.200 Nicotine dependence, unspecified, uncomplicated
CPT/HCPCS: 71010; 80053; 80061; 80320; 80324; 80345; 80346; 80349; 80353; 80358; 80361; 81003; 82550; 82553; 83036; 83615; 83690; 83735; 83880; 83992; 84100; 84443; 84484; 85025; 85610; 85730; 93005; 99285; G0378; J7040